=== PATIENT | female | born 1975 | race Caucasian/White ===

== ENCOUNTER → 2016-07-18 | Day surgery (SDC) | payer BC ==
[2016-07-17 13:23] VITALS: Ht 170.2 cm; Wt 120.5 kg
[~2016-07-18] VITALS: Ht 170.2 cm; Wt 120.5 kg
[~2016-07-18] MED LIST: BENZOIN SPRAY 118 ML BTL TOP ONE; BUPIVACAINE/EPINEPHRINE 0.5% MPF 1:200,000 30 ML VIAL ONE; CEFAZOLIN 2000 MG/60 ML D5W IV SCH; CHOL20009 PO; DEXAMETHASONE SOD INJ 4 MG/ML VIAL ONE; FENTANYL CITRATE INJ 50 MCG/1 ML 2 ML VIAL ONE; HYDR-5688 PO; HYDROCODONE/ACETAMOPHEN 5/325MG TAB PO PRN; HYDROmorphone INJ 0.5 MG/0.5 ML SYR ONE; HYDROmorphone INJ 1 MG/ML SYR IV PRN; KETOROLAC TROMETHAMINE 30 MG/ML VIAL IV. PRN; KETOROLAC TROMETHAMINE 30 MG/ML VIAL ONE; LACTATED RINGER'S 1000ML 1,000 ML IV PRN; LACTATED RINGER'S 1000ML 1,000 ML IV SCH; LEVO50TA6 PO; LIDOCAINE HCL 2% 2 ML VIAL (20MG/ML) ONE; METHYLENE BLUE 1% 1 ML VIAL ONE; MIDAZOLAM HCL 1 MG/ML 2ML VIAL ONE; MULT-506 PO; MoRPHine SULFATE 4 MG/ML 1 ML CARP\\VIAL IV PRN; ONDANSETRON INJ 2 MG/ML 2 ML VIAL IV PRN; ONDANSETRON INJ 2 MG/ML 2 ML VIAL ONE; OXYC7.5T65 PO; OXYMETAZOLINE HCL 0.05% NA SPR 15 ML BTL SCH; PROPOFOL IV EMULSION 10 MG/ML 20 ML VIAL IV ONE; ROCURONIUM BROMIDE 10 MG/ML 5 ML VIAL ONE; SODIUM CHLORIDE 0.9% 1000ML 1,000 ML IV SCH; SUCCINYLCHOLINE CHLORIDE 20 MG/ML 10 ML VIAL IV ONE; SULF800T23 PO
--- NOTE | 2016-07-18 08:19 | History & Physical Bridge Note ---
H&P Re-Evaluation Bridge Note: I have examined the patient, reviewed the History & Physical and in the interval since the performance of the History & Physical I have noted the following changes of clinical significance: No changes noted
--- NOTE | 2016-07-18 08:24 | Discharge Instructions-SurgCtr ---
Discharge Instructions Visit Reason for Visit: Pilonidal Cyst Discharge Discharge Diagnosis / Problem: pilonidal cyst Discharge Goals Goal(s): Decrease discomfort, Improve function Activity Recommendations Activity Limitations: as noted below Lifting Limitations: no more than 10 pounds Exercise/Sports Limitations: until after follow-up appointment May Resume Sexual Activity: after follow-up appointment Shower/Bathe: tomorrow Anesthesia . Post Anesthesia Instructions: If you have had General Anesthesia or IV Sedation: * Do not drive today. * Resume driving when surgeon permits. * Do not make important decisions or sign legal documents today. * Call surgeon for: 1. Temperature elevations greater than 101 degrees F. 2. Uncontrollable pain. 3. Excessive bleeding. 4. Persistent nausea and vomiting. 5. Medication intolerance (nausea, vomiting or rash). * For nausea and vomiting use only clear liquids such as: tea, soda, bouillon until nausea subsides, then gradually increase diet as tolerated. * If you have any concerns or questions, call your surgeon's office. If physician is unavailable and it is an emergency, call 911 or go to the nearest emergency room. . Instructions / Follow-Up Instructions / Follow-Up f/u with Dr. Brambila in 3 weeks. Diet Recommendations Home Diet: resume previous diet Pending Studies Studies pending at discharge: yes (pathology report) Medical Emergencies . Who to Call and When: Medical Emergencies: If at any time you feel your situation is an emergency, please call 911 immediately. . Non-Emergent Contact Non-Emergency issues call your: Primary Care Provider, Surgeon Call Non-Emergent contact if: temperature is above 101, your pain is not controlled, wound has increased drainage, wound has increased redness, wound has increased pain . . "Provider Documentation" section prepared by Emiliano Brambila.
--- NOTE | 2016-07-18 09:15 | [facility] Operative Report ---
Operative Report Operative Date Jul 18, 2016. Pre-Operative Diagnosis Pilonidal Cyst Post-Operative Diagnosis pilonidal cyst Procedure(s) Performed pilonidal cystectomy Surgeon Dr. Francisco Brambila Cold Type Composing Machine Operator Surgeon(s) Hector Zuniga PA-C Estimated Blood Loss 10CC Findings small sinus tract/cyst Specimens A. Pilonidal Cyst Tract Anesthesia GET Complication(s) None Disposition Recovery Room / PACU I attest to the content of the Intraoperative Record and any orders documented therein. Any exceptions are noted below.
[2016-07-18] MEDS: FENTANYL CITRATE INJ 50 MCG/1 ML 2 ML VIAL IV PRN ×4 (09:18→09:35)
[2016-07-18 10:39] VITALS: TEMP 36.6
--- NOTE | 2016-07-18 11:06 | Anesthesia Progress Nt - [facility] ---
Anesthesia Post Op Note Date & Time Jul 18, 2016 at 11:05 Vital Signs Pain Intensity: 6.0 Vital Signs Past 12 Hours Date Time Temp Pulse Resp B/P Pulse Ox O2 Delivery O2 Flow Rate FiO2 07/18/16 10:19 83 10 07/18/16 10:19 82 10 92 07/18/16 10:18 85 16 07/18/16 10:18 93 16 130/85 94 07/18/16 10:13 132/78 07/18/16 10:12 80 10 97 07/18/16 10:12 80 10 07/18/16 10:08 131/85 07/18/16 10:04 121/82 07/18/16 10:02 79 19 99 07/18/16 10:02 80 19 07/18/16 10:01 79 17 100 07/18/16 10:01 79 17 07/18/16 09:59 135/90 07/18/16 09:56 36.7 80 12 124/83 100 Room Air 07/18/16 09:54 124/83 07/18/16 09:51 78 21 100 07/18/16 09:51 79 20 100 07/18/16 09:49 125/80 07/18/16 09:46 80 12 100 07/18/16 09:46 80 12 07/18/16 09:45 83 15 07/18/16 09:45 83 15 100 07/18/16 09:44 126/76 07/18/16 09:40 90 22 100 07/18/16 09:40 83 20 100 07/18/16 09:39 137/90 07/18/16 09:34 94 30 139/93 100 07/18/16 09:34 93 17 100 07/18/16 09:29 97 20 135/77 100 07/18/16 09:29 95 20 07/18/16 09:23 116/84 07/18/16 09:20 104/77 07/18/16 09:19 102 18 99 07/18/16 09:19 109 16 99 07/18/16 09:14 110 17 100 07/18/16 09:14 110 17 07/18/16 09:14 37.1 111 20 134/78 97 Diffusion Mask 6 07/18/16 07:23 37.0 94 18 148/95 97 Room Air Notes Mental Status: alert / awake / arousable, participated in evaluation Pt Amnestic to Procedure: Yes Nausea / Vomiting: adequately controlled Pain: adequately controlled Airway Patency, RR, SpO2: stable & adequate BP & HR: stable & adequate Hydration State: stable & adequate Anesthetic Complications: no major complications apparent
[2016-07-18 11:25] VITALS: BP 158/89; PULSE 94; O2SAT 95
--- NOTE | 2016-07-29 11:46 | OPERATIVE REPORT ---
DATE OF OPERATION: 07/18/2016 PREOPERATIVE DIAGNOSIS: Symptomatic pilonidal cyst. POSTOPERATIVE DIAGNOSIS: Same. PROCEDURE: Pilonidal cystectomy. SURGEON: Dr. Brambila. ORIGINATION SPECIALIST: Alex Zuniga PA-C. ESTIMATED BLOOD LOSS: Approximately 10 mL. COMPLICATIONS: No immediate. OPERATIVE NOTE: After informed consent was obtained, the patient was brought to the operating suite, and placed in the supine position. She was intubated and rolled into a prone position slightly jackknifed. The lower back area was sterilely prepped and draped in the usual fashion. We began by using a blunt needle to inject the sinus tract that was visible. Once we did this, we then made an elliptical incision with a 10 blade scalpel around the visible sinus tract. We used electrocautery to carry down and make flaps under the skin. We continued to use electrocautery to take down all normal tissue around the area of the sinus tract. We continued to follow the cystic structures laterally, superiorly and inferiorly until we had all of the sac containing the visible blue dye removed. Once we had the entire cyst removed, which was clear down to the sacral bone itself, we then thoroughly irrigated the wound. Any small bleeding points were controlled using electrocautery. We then closed the defect in several layers using 0 Vicryl for the deep layers, 2-0 Vicryl for the mid layers and 3-0 Prolene in an interrupted vertical mattress fashion for the skin. We then placed a sterile dressing. The patient was awakened, rolled to supine position, extubated, and transferred to recovery in stable condition. I attest to the content of the Intraoperative Record and any orders documented therein. Any exceptio ns are noted below.
== END | disposition home or self-care (01) ==
LOC: X.SURG 07:17
PROVIDERS: ATTEND Surgery
DX: L05.91 Pilonidal cyst without abscess (principal); F41.9 Anxiety disorder, unspecified; E03.9 Hypothyroidism, unspecified; N20.0 Calculus of kidney; E55.9 Vitamin D deficiency, unspecified; E66.9 Obesity, unspecified

== ENCOUNTER → 2016-07-24 | Outpatient (CLI) | payer BC ==
[~2016-07-24] MED LIST changes: -BENZOIN SPRAY 118 ML BTL TOP ONE; -BUPIVACAINE/EPINEPHRINE 0.5% MPF 1:200,000 30 ML VIAL ONE; -CEFAZOLIN 2000 MG/60 ML D5W IV SCH; -DEXAMETHASONE SOD INJ 4 MG/ML VIAL ONE; -FENTANYL CITRATE INJ 50 MCG/1 ML 2 ML VIAL ONE; -HYDROCODONE/ACETAMOPHEN 5/325MG TAB PO PRN; -HYDROmorphone INJ 0.5 MG/0.5 ML SYR ONE; -HYDROmorphone INJ 1 MG/ML SYR IV PRN; -KETOROLAC TROMETHAMINE 30 MG/ML VIAL IV. PRN; -KETOROLAC TROMETHAMINE 30 MG/ML VIAL ONE; -LACTATED RINGER'S 1000ML 1,000 ML IV PRN; -LACTATED RINGER'S 1000ML 1,000 ML IV SCH; -LIDOCAINE HCL 2% 2 ML VIAL (20MG/ML) ONE; -METHYLENE BLUE 1% 1 ML VIAL ONE; -MIDAZOLAM HCL 1 MG/ML 2ML VIAL ONE; -MoRPHine SULFATE 4 MG/ML 1 ML CARP\\VIAL IV PRN; -ONDANSETRON INJ 2 MG/ML 2 ML VIAL IV PRN; -ONDANSETRON INJ 2 MG/ML 2 ML VIAL ONE; -OXYMETAZOLINE HCL 0.05% NA SPR 15 ML BTL SCH; -PROPOFOL IV EMULSION 10 MG/ML 20 ML VIAL IV ONE; -ROCURONIUM BROMIDE 10 MG/ML 5 ML VIAL ONE; -SODIUM CHLORIDE 0.9% 1000ML 1,000 ML IV SCH; -SUCCINYLCHOLINE CHLORIDE 20 MG/ML 10 ML VIAL IV ONE
[2016-07-24 11:10] LABS: CALCIUM 8.6 mg/dl (8.5-10.1)
[2016-07-24 11:27] LABS: THYROID STIMULATING HORMONE 1.38 uIu/ml (0.300-4.500)
== END | disposition home or self-care (01) ==
LOC: C.LABBC 08:57
PROVIDERS: ATTEND Internal Medicine Endocrinology, Diabetes & Metabolism
DX: E83.50 Unspecified disorder of calcium metabolism (principal); E87.6 Hypokalemia; E03.9 Hypothyroidism, unspecified; E55.9 Vitamin D deficiency, unspecified; R31.9 Hematuria, unspecified

== ENCOUNTER → 2016-10-27 | Outpatient (CLI) | payer BC, OTHER ==
--- NOTE | 2016-10-27 08:22 | DIAGNOSTIC IMAGING REPORT ---
LEFT FEMUR 2 VIEWS CLINICAL HISTORY: Left thigh/femur pain. History of surgery. COMPARISON: 05/29/2015 DISCUSSION: There are postsurgical changes of a total left hip arthroplasty. No acute fractures are visualized. There are no dislocations. There are no erosive or destructive changes. IMPRESSION: Postsurgical changes of a total left hip arthroplasty. No fractures or destructive lesions are visualized. Electronically signed by: Owen Núñez M.D. 10/27/2016 8:20 AM Dictated Date/Time: 10/27/2016 8:19 AM
== END | disposition home or self-care (01) ==
LOC: C.RDSM 08:00
PROVIDERS: ATTEND Physician Assistant
DX: M79.652 Pain in left thigh (principal)

== ENCOUNTER → 2016-11-24 | Outpatient (CLI) | payer BC ==
--- NOTE | 2016-11-24 08:56 | DIAGNOSTIC IMAGING REPORT ---
KUB CLINICAL HISTORY: Nephrolithiasis. COMPARISON STUDY: KUB November 05, 2015 and IVP April 21, 2016. FINDINGS: Incidental note is made of a left hip arthroplasty and suspected avascular necrosis of the right femoral head. Several small bilateral renal calculi measure up to 3 mm. A few right pelvic calcific densities are new since prior exam. These measure up to 4 mm. Left pelvic calcifications likely reflect phleboliths. IMPRESSION: 1. A few small right pelvic calcifications measuring up to 4 mm which favor right distal ureteral calculi. 2. Bilateral nephrolithiasis. Electronically signed by: Donald Reeder M.D. 11/24/2016 8:54 AM Dictated Date/Time: 11/24/2016 8:46 AM
== END | disposition home or self-care (01) ==
LOC: C.RAD 08:17
PROVIDERS: ATTEND Urology
DX: N20.2 Calculus of kidney with calculus of ureter (principal)

== ENCOUNTER → 2016-11-24 | Outpatient (CLI) | payer BC | END | disposition home or self-care (01) | LOC: C.LABSPEC 16:57 | PROVIDERS: ATTEND Nurse Practitioner Adult Health | DX: N20.1 Calculus of ureter (principal) ==

== ENCOUNTER → 2016-11-25 | Outpatient (CLI) | payer BC ==
--- NOTE | 2016-11-25 09:24 | DIAGNOSTIC IMAGING REPORT ---
TWO VIEW CHEST CLINICAL HISTORY: Preoperative examination. FINDINGS: PA and lateral chest radiographs are compared to study dated 09/26/2015. The cardiomediastinal silhouette is unremarkable. The lungs and pleural spaces are clear. There is no pneumothorax. The bony thorax appears intact. IMPRESSION: No active disease in the chest. Electronically signed by: Bijan Walker M.D. 11/25/2016 9:23 AM Dictated Date/Time: 11/25/2016 9:23 AM
[2016-11-25 09:44] LABS: BASO % 0.3 %; BASO ABS # 0.04 K/uL (0-0.2); COMPLETE YES; EOS % 2.4 %; HEMATOCRIT 39.6 % (37-47); IG% 0.3 %; LYMPH % 15.9 %; LYMPH ABS # 1.87 K/uL (1.2-3.4); MEAN CELL VOLUME 89.6 fL (80-100); MEAN CORPUSCULAR HEMOGLOBIN 29.4 pg (25-34); MEAN CORPUSCULAR HGB CONC 32.8 g/dl (32-36); MONO % 6.6 %; NEUT % 74.5 %; PLATELET COUNT 338 K/uL (130-400); RED BLOOD COUNT 4.42 M/uL (4.2-5.4); WHITE BLOOD COUNT 11.77 K/uL (4.8-10.8)
[2016-11-25 10:13] LABS: BLOOD UREA NITROGEN 13 mg/dl (7-18); BUN/CREATININE RATIO 17.5 (10-20); CARBON DIOXIDE 24 mmol/L (21-32); CHLORIDE 105 mmol/L (98-107); CREATININE 0.75 mg/dl (0.60-1.20); GLUCOSE 101 mg/dl (70-99); POTASSIUM 3.9 mmol/L (3.5-5.1); SODIUM 138 mmol/L (136-145)
[2016-11-25 10:30] LABS: CALCIUM 9.7 mg/dl (8.5-10.1)
== END | disposition home or self-care (01) ==
LOC: C.CPL 08:41
PROVIDERS: ATTEND Nurse Practitioner Adult Health
DX: N20.0 Calculus of kidney (principal); E03.9 Hypothyroidism, unspecified; E55.9 Vitamin D deficiency, unspecified; Z86.39 Personal history of other endocrine, nutritional and metabolic disease

== ENCOUNTER → 2016-11-27 | Outpatient (CLI) | payer BC ==
[~2016-11-27] MED LIST changes: -SULF800T23 PO
--- NOTE | 2016-11-27 08:21 | DIAGNOSTIC IMAGING REPORT ---
KUB HISTORY: N20.0 Nephrolithiasis COMPARISON: KUB 11/24/2016. FINDINGS: The bowel gas pattern is unremarkable. There are no dilated loops of small bowel to suggest an obstruction. No change in the 2 punctate stones within the lower pole of the right kidney. No left renal calculi. The suspected distal right ureteral calculi are not identified on this study. There is a left hip prosthesis. No pneumoperitoneum or pneumatosis. IMPRESSION: 1. Stable right-sided nephrolithiasis. 2. The distal right ureteral stones seen on the prior study are not clearly identified. Electronically signed by: Zeyad Cardenas M.D. 11/27/2016 8:19 AM Dictated Date/Time: 11/27/2016 8:18 AM
== END | disposition home or self-care (01) ==
LOC: C.RAD 07:35
PROVIDERS: ATTEND Nurse Practitioner Adult Health
DX: N20.0 Calculus of kidney (principal); N20.1 Calculus of ureter

== ENCOUNTER → 2016-12-15 | Outpatient (CLI) | payer BC ==
--- NOTE | 2016-12-15 09:15 | DIAGNOSTIC IMAGING REPORT ---
KUB HISTORY: N20.0 [id number] COMPARISON: KUB 11/27/2016. FINDINGS: The bowel gas pattern is unremarkable. There are no dilated loops of small bowel to suggest an obstruction. No change in the 2 punctate stones within the lower pole the right kidney. No left renal calculi. No ureteral calculi identified. Left hip prosthesis. No pneumoperitoneum or pneumatosis. IMPRESSION: Stable right-sided nephrolithiasis. No ureteral calculi identified. Electronically signed by: Zeyad Cardenas M.D. 12/15/2016 9:14 AM Dictated Date/Time: 12/15/2016 9:13 AM
== END | disposition home or self-care (01) ==
LOC: C.RAD 08:47
PROVIDERS: ATTEND Nurse Practitioner Adult Health
DX: N20.0 Calculus of kidney (principal)

== ENCOUNTER → 2017-01-05 | Outpatient (CLI) | payer BC ==
[~2017-01-05] MED LIST changes: -HYDR-5688 PO
[2017-01-05 12:10] LABS: BASO % 0.3 %; BASO ABS # 0.03 K/uL (0-0.2); COMPLETE YES; HEMATOCRIT 39.9 % (37-47); IG% 0.2 %; LYMPH % 19.1 %; LYMPH ABS # 1.72 K/uL (1.2-3.4); MEAN CELL VOLUME 90.7 fL (80-100); MEAN CORPUSCULAR HEMOGLOBIN 28.9 pg (25-34); MEAN CORPUSCULAR HGB CONC 31.8 g/dl (32-36); MEAN PLATELET VOLUME 9.1 fL (7.4-10.4); MONO % 6.2 %; NEUT % 72.2 %; PLATELET COUNT 292 K/uL (130-400)
[2017-01-05 12:17] LABS: URINE APPEARANCE CLOUDY (CLEAR); URINE BILIRUBIN NEG (NEG); URINE COLOR DK YELLOW; URINE EPITHELIAL CELL AUTO >30 /lpf (0-5); URINE NITRITE NEG (NEG); URINE SPECIFIC GRAVITY 1.024 (1.000-1.030); UROBILINOGEN NEG (NEG)
[2017-01-05 12:21] LABS: MANUAL MICROSCOPIC REQUIRED? NO; REVIEW REQ? NO
[2017-01-05 12:37] LABS: BLOOD UREA NITROGEN 11 mg/dl (7-18); BUN/CREATININE RATIO 16.3 (10-20); CALCIUM 8.3 mg/dl (8.5-10.1); CARBON DIOXIDE 27 mmol/L (21-32); CHLORIDE 104 mmol/L (98-107); CREATININE 0.66 mg/dl (0.60-1.20); GLUCOSE 91 mg/dl (70-99); POTASSIUM 3.8 mmol/L (3.5-5.1); SODIUM 140 mmol/L (136-145)
== END | disposition home or self-care (01) ==
LOC: C.LAB 10:16
PROVIDERS: ATTEND Nurse Practitioner Adult Health
DX: N20.0 Calculus of kidney (principal)

== ENCOUNTER → 2017-01-16 | Day surgery (SDC) | payer BC ==
[2016-11-25 10:27] VITALS: BMI 43.0
[2016-12-18 09:40] VITALS: Ht 170.2 cm; Wt 125.0 kg
--- NOTE | 2017-01-15 14:38 | DIAGNOSTIC IMAGING REPORT ---
KUB CLINICAL HISTORY: Nephrolithiasis. COMPARISON STUDY: KUB December 15, 2016. FINDINGS: 2 small calculi within lower pole of the right kidney measuring up to 3 mm are unchanged since exam of December 15, 2016. There is a 3 mm calculus within the upper pole of the left kidney. No ureteral calculi are identified. A punctate calcific density within left hemipelvis was likely present on prior exams. A left hip arthroplasty is noted. There is avascular necrosis of the right femoral head. IMPRESSION: 1. No change in several small calculi within lower pole of the right kidney. 3 mm left renal calculus. 2. No ureteral calculi. 3. Avascular necrosis of the right femoral head. Electronically signed by: Donald Reeder M.D. 01/15/2017 2:37 PM Dictated Date/Time: 01/15/2017 2:33 PM
[~2017-01-16] VITALS: Ht 170.2 cm; Wt 125.0 kg
[~2017-01-16] MED LIST changes: +ATROPINE SULFATE 0.1 MG/ML 5ML SYR IV PRN; +CIPROFLOXACIN 400MG / D5W IV SCH; +DEXAMETHASONE SOD INJ 4 MG/ML VIAL ONE; +EpHEDrine SULFATE INJ 50 MG/ML AMP IV PRN; +FENTANYL CITRATE INJ 50 MCG/1 ML 2 ML VIAL ONE; +LACTATED RINGER'S 1000ML 1,000 ML IV SCH; +LIDOCAINE HCL 2% 2 ML VIAL (20MG/ML) ONE; +MIDAZOLAM HCL 1 MG/ML 2ML VIAL ONE; +ONDANSETRON INJ 2 MG/ML 2 ML VIAL IV PRN; +ONDANSETRON INJ 2 MG/ML 2 ML VIAL ONE; +OXYCODONE/ACETAMINOPHEN 5-325 TAB PO PRN; +PROMETHAZINE HCL INJ 12.5 MG in SODIUM CHLORIDE 0.9% 50ML 50 ML IV PRN; +PROPOFOL IV EMULSION 10 MG/ML 20 ML VIAL IV ONE
--- NOTE | 2017-01-16 07:34 | Discharge Instructions ---
Discharge Instructions Date of Service Jan 16, 2017. Admission Reason for Admission: Stones Discharge Discharge Diagnosis / Problem: R renal stone s/p ESWL Discharge Goals Goal(s): Decrease discomfort, Improve disease control, Therapeutic intervention Activity Recommendations Activity Limitations: as noted below Lifting Limitations: no more than 25 pounds, gradually increase as tolerated ( over 3 days) Exercise/Sports Limitations: rest today, gradually increase as tolerated (over 3 days) May Resume Sexual Activity: when tolerated Shower/Bathe: no limitations Driving or Machine Use: resume 1 day after discharge . Instructions / Follow-Up Instructions / Follow-Up Strain urine as instructed Follow-up in office as scheduled with KUB Xray before visit Discharge Diet Recommended Diet: Regular Diet (good fluid intake) Procedures Procedures Performed: Right Extracorporeal Shock Wave Lithotripsy Pending Studies Studies pending at discharge: no Medical Emergencies . Who to Call and When: Medical Emergencies: If at any time you feel your situation is an emergency, please call 911 immediately. . Non-Emergent Contact Non-Emergency issues call your: Urologist Call Non-Emergent contact if: you have a fever, temperature is above 101, your pain is not controlled, your pain is worsening, your pain is unusual for you, your pain is concerning you, you have any medication questions . . "Provider Documentation" section prepared by Toy Hopper. . VTE Core Measure Inpt VTE Proph given/why not?: SCD's [place] Drug Monitoring Program Search Results: patient reviewed within database, see additional documentation (last Rx Oct 2016 by our office with previous stone passage)
--- NOTE | 2017-01-16 07:37 | [facility] Operative Report ---
Operative Report Operative Date Jan 16, 2017. Pre-Operative Diagnosis Right Kidney Stone Post-Operative Diagnosis Same Procedure(s) Performed Right Extracorporeal Shock Wave Lithotripsy Surgeon Dr Irene Hopper Wool Handler Surgeon(s) None Estimated Blood Loss 0ml Findings Good stone fragmentation on fluoro Specimens None Drains NA Anesthesia GALMA Complication(s) None Disposition Recovery Room / PACU Indications R renal stones Description of Procedure The patient was brought to the litho suite. He was correctly identified and the stone was visualized on his most recent x-rays. After the correct time out was performed the patient was positioned over the therapy head. An adequate level of anesthesia was administered. The extracorporeal shockwave lithotripsy treatment was then commenced. Please see the [place] Kidney Stone Management sheet for complete treatment summary. After completion of the procedure the patient was taken to the recovery room in stable condition. I attest to the content of the Intraoperative Record and any orders documented therein. Any exceptions are noted below. I attest to the content of the Intraoperative Record and any orders documented therein. Any exceptions are noted below.
[2017-01-16] MEDS: FENTANYL CITRATE INJ 50 MCG/1 ML 2 ML VIAL IV PRN ×2 (07:58→08:16)
[2017-01-16 08:41] VITALS: TEMP 36.8
--- NOTE | 2017-01-16 09:00 | Anesthesiology Progress Note ---
Anesthesia Post Op Note Date & Time Jan 16, 2017 at 09:00 Vital Signs Pain Intensity: 6 Vital Signs Past 12 Hours Date Time Temp Pulse Resp B/P (MAP) Pulse Ox O2 Delivery O2 Flow Rate FiO2 01/16/17 08:41 36.8 64 16 119/78 (92) 96 Room Air 01/16/17 08:28 36.7 63 16 137/78 98 01/16/17 08:22 137/76 01/16/17 08:19 72 19 01/16/17 08:19 73 19 100 01/16/17 08:16 126/68 01/16/17 08:14 69 26 01/16/17 08:14 68 26 100 01/16/17 08:12 125/70 01/16/17 08:09 68 17 01/16/17 08:09 70 17 100 01/16/17 08:06 115/81 01/16/17 08:04 71 14 123/55 100 01/16/17 08:04 69 14 01/16/17 08:02 65/39 01/16/17 07:59 59 17 100 01/16/17 07:59 63 17 01/16/17 07:58 54 15 01/16/17 07:58 55 15 100 01/16/17 07:56 122/70 01/16/17 07:53 59 17 100 01/16/17 07:53 59 17 01/16/17 07:51 121/71 01/16/17 07:48 54 17 100 01/16/17 07:48 54 17 01/16/17 07:46 122/77 01/16/17 07:44 36.4 77 16 125/80 100 Mask 01/16/17 06:33 36.7 86 20 133/82 (99) 96 Room Air Notes Mental Status: alert / awake / arousable, participated in evaluation Pt Amnestic to Procedure: Yes Nausea / Vomiting: adequately controlled Pain: adequately controlled Airway Patency, RR, SpO2: stable & adequate BP & HR: stable & adequate Hydration State: stable & adequate Anesthetic Complications: no major complications apparent
[2017-01-16 09:14] VITALS: BP 107/73; PULSE 64; O2SAT 97
== END | disposition home or self-care (01) ==
LOC: X.SURG 06:11
PROVIDERS: ATTEND Urology
DX: N20.0 Calculus of kidney (principal); J45.909 Unspecified asthma, uncomplicated; F41.9 Anxiety disorder, unspecified; E03.9 Hypothyroidism, unspecified; E55.9 Vitamin D deficiency, unspecified; E87.6 Hypokalemia; Z79.899 Other long term (current) drug therapy

== ENCOUNTER → 2017-01-26 | Outpatient (CLI) | payer BC ==
[~2017-01-26] MED LIST changes: -ATROPINE SULFATE 0.1 MG/ML 5ML SYR IV PRN; -CIPROFLOXACIN 400MG / D5W IV SCH; -DEXAMETHASONE SOD INJ 4 MG/ML VIAL ONE; -EpHEDrine SULFATE INJ 50 MG/ML AMP IV PRN; -FENTANYL CITRATE INJ 50 MCG/1 ML 2 ML VIAL ONE; -LACTATED RINGER'S 1000ML 1,000 ML IV SCH; -LIDOCAINE HCL 2% 2 ML VIAL (20MG/ML) ONE; -MIDAZOLAM HCL 1 MG/ML 2ML VIAL ONE; -ONDANSETRON INJ 2 MG/ML 2 ML VIAL IV PRN; -ONDANSETRON INJ 2 MG/ML 2 ML VIAL ONE; -OXYCODONE/ACETAMINOPHEN 5-325 TAB PO PRN; -PROMETHAZINE HCL INJ 12.5 MG in SODIUM CHLORIDE 0.9% 50ML 50 ML IV PRN; -PROPOFOL IV EMULSION 10 MG/ML 20 ML VIAL IV ONE
--- NOTE | 2017-01-26 09:57 | DIAGNOSTIC IMAGING REPORT ---
KUB HISTORY: 41 years-old Female N20.0 nephrolithiasis. Patient had lithotripsy 10 days prior. COMPARISON: KUB radiograph 01/15/2017 TECHNIQUE: Abdominal radiograph FINDINGS: No change in 3 mm left renal calculus progression over the superior pole. Calcifications project over the superior pole right kidney which may reflect additional calculi. No calculi are seen to correlate with the finding seen within the region of the lower pole right kidney on comparison study. No calculi are seen along the course of the ureters. Left hip arthroplasty noted. There is AVN of the right femoral head without evidence of articular collapse. IMPRESSION: 1. Previously noted calculi projecting over the inferior pole right kidney is no longer seen, suggesting interval passage. 2. Bilateral nephrolithiasis. 3. No calculi seen along the course of either ureter. The above report was generated using voice recognition software. It may contain grammatical, syntax or spelling errors. Electronically signed by: Dieudonne Macdonald M.D. 01/26/2017 9:56 AM Dictated Date/Time: 01/26/2017 9:53 AM
== END | disposition home or self-care (01) ==
LOC: C.RAD 09:19
PROVIDERS: ATTEND Nurse Practitioner Adult Health
DX: N20.0 Calculus of kidney (principal)

== ENCOUNTER → 2017-01-26 | Outpatient (CLI) | payer BC | END | disposition home or self-care (01) | LOC: C.LABSPEC 17:05 | PROVIDERS: ATTEND Nurse Practitioner Adult Health | DX: N20.0 Calculus of kidney (principal) ==

== ENCOUNTER → 2017-02-02 | Outpatient (CLI) | payer BC ==
--- NOTE | 2017-02-02 08:31 | DIAGNOSTIC IMAGING REPORT ---
KUB CLINICAL HISTORY: 41 years-old Female presenting with NEPHROLITHIASIS. TECHNIQUE: Single supine view of the abdomen was obtained. COMPARISON: 01/26/2017. FINDINGS: Previously noted 3 mm calculus at the upper pole the left kidney is again noted. No change in position. Stool partially obscures visualization of the right kidney collecting system. Allowing for this, no convincing evidence of calcification along the right likely system or ureters. No calcifications project over the bladder Mild stool burden. Nonobstructive bowel gas pattern. Osseous structures demonstrate total left hip arthroplasty. IMPRESSION: 1. Stable appearance of the 3 mm calculus at the left upper pole. No calculi along the course of either ureter. Electronically signed by: Abebe Holland M.D. 02/02/2017 8:30 AM Dictated Date/Time: 02/02/2017 8:25 AM
== END | disposition home or self-care (01) ==
LOC: C.RAD 08:05
PROVIDERS: ATTEND Nurse Practitioner Adult Health
DX: N20.0 Calculus of kidney (principal)

== ENCOUNTER → 2017-07-10 | Outpatient (CLI) | payer BC ==
--- NOTE | 2017-07-10 10:46 | DIAGNOSTIC IMAGING REPORT ---
KUB CLINICAL HISTORY: 42 years-old Female presenting with 592.0, N20.0. TECHNIQUE: Single supine view of the abdomen was obtained. COMPARISON: 02/02/2017. FINDINGS: Nonobstructive bowel gas pattern. No gross pneumoperitoneum. Allowing for bowel gas and stool, previously noted punctate calcification at the upper pole of the left kidney unchanged. No new renal calculus. No radiographic apparent ureteral calculus. Total left hip arthroplasty. IMPRESSION: 1. Unchanged left renal calculus. Electronically signed by: Abebe Holland M.D. 07/10/2017 10:44 AM Dictated Date/Time: 07/10/2017 10:43 AM
== END | disposition home or self-care (01) ==
LOC: C.RAD 10:03
PROVIDERS: ATTEND Urology
DX: N20.0 Calculus of kidney (principal)

== ENCOUNTER → 2018-01-26 | Outpatient (CLI) | payer BC ==
[2018-01-26 13:09] LABS: ALBUMIN 3.4 gm/dl (3.4-5.0); CALCIUM 7.9 mg/dl (8.5-10.1)
== END | disposition home or self-care (01) ==
LOC: C.LABBC 10:05
PROVIDERS: ATTEND Internal Medicine Endocrinology, Diabetes & Metabolism
DX: E03.9 Hypothyroidism, unspecified (principal); E06.3 Autoimmune thyroiditis; E83.50 Unspecified disorder of calcium metabolism; E55.9 Vitamin D deficiency, unspecified; N20.0 Calculus of kidney; Z86.39 Personal history of other endocrine, nutritional and metabolic disease

== ENCOUNTER → 2018-01-26 | Outpatient (CLI) | payer BC ==
--- NOTE | 2018-01-26 15:18 | DIAGNOSTIC IMAGING REPORT ---
L HEEL MIN 2 VIEWS CLINICAL HISTORY: LEFT HEEL PAIN COMPARISON: Left foot radiographs May 02, 2014 and MRI of the left foot June 20, 2014. FINDINGS: Subtalar joint is intact. No fracture or suspicious lesion is identified within the left calcaneus. There is mild plantar calcaneal spurring. IMPRESSION: 1. No calcaneal fracture or suspicious osseous lesion. 2. Mild plantar calcaneal spurring. Electronically signed by: Donald Reeder M.D. 01/26/2018 3:17 PM Dictated Date/Time: 01/26/2018 3:16 PM
== END | disposition home or self-care (01) ==
LOC: C.RDSM 14:27
PROVIDERS: ATTEND Physician Assistant
DX: M79.672 Pain in left foot (principal); Z88.1 Allergy status to other antibiotic agents; Z88.6 Allergy status to analgesic agent

== ENCOUNTER 2024-09-19 06:48 | Inpatient (IN) ==
--- NOTE | 2024-09-01 16:26 | History & Physical Report ---
Date of Service September 01, 2024 Assessment & Plan (1) Gestational hypertension: (2) Insulin controlled gestational diabetes mellitus (GDM) during : (3) Elderly multigravida: (4) resulting from in-vitro fertilization: Plan Patient presents today for primary elective c/s at 37 weeks secondary to GHTN GHTN has been well controlled with normal labs. The risks of surgery were discussed with the patient including the risks of anesthesia, bleeding requiring transfusion, infection, poor wound healing, urinary retention, damage to surrounding structures including bowels, bladder, vessels, nerves and ureters that may require further surgery, hospitalization or intervention. The other risks of any surgery were discussed including heart attack, blood clots, stroke or . Discussed risk of injury. Consent reviewed and signed. Questions answered. History of Present Illness Chief Complaint: presents for elective c/s. Primary Care Provider: Nima Amin MD Patient is a 49yowf who presents today at 37+ weeks for primary elective c/s in setting of GHTN. Patient electing c/s because os history of hip replacement secondary to avascular necrosis. Multiple issues with this as noted below. Growth us have been reassuring and appropriate. testing reassuring. Developed GHTN around 25 weeks and labs and blood pressures have been stable since. Sugars controlled on insulin. and Delivery Plans Primary elective due to maternal hip replacement and avascular necrosis Schedule at 28wk visit. C/S SCHEDULED FOR 09/19/[address] ROJAS AND DR. KHAN ASSIST IVF/ICSI--THIS IS PRIVATE FOR SPOUSE AND PATIENT ONLY TO KNOW *Donor egg used*--33yo * Echo-[facility] [place]/14/24: WNL - JBS *Growth US Q4wks @28wks *Weekly NSTs @36wks *Weekly JASWINDER's @36wks(ICSI done) AMA>40@del *Anatomy Scan @ 20wks * Echo 22-24wks - 06/14 *Growth scan @32wks *Weekly NST's @36 wks *Twice weekly NST @38wks *Weekly JASWINDER's @38wks *Deliver by 40 wks Gest HTN @ 25wk *Weekly BP chk's with Doc *Weekly CBC, LFTs *Growth US Q4wks *If IUGR: JASWINDER w/UAD's weekly *Deliver 37-38wks *(If Gestational HTN<28wks bring to [facility]) *Twice weekly NST's @Dx Obesity (BMI between 35-39 @ beginning of )--38.3 *Growth US @ 32 wks *Weekly NSTs @ 36wks Hypothyroid *Check TFTs Q4wks - managed by Sergio MOE w/16wk glucola *Begin monthly Growth US's @24wks UDS on admission Allergies Allergy/AdvReac Type Severity Reaction Status Date / Time clindamycin Allergy Unknown RASH Verified 09/01/24 10:25 amoxicillin AdvReac Unknown NAUSEA Verified 09/01/24 10:25 clavulanic acid AdvReac Unknown NAUSEA Verified 09/01/24 10:25 NSAIDS (Non-Steroidal AdvReac Unknown "NOT Verified 09/01/24 10:25 Anti-Inflamma SUPPOSE TO TAKE DUE TO KIDNEY STONES" Home Medications Medication Instructions Recorded Confirmed Type aspirin [Baby Aspirin] PO 03/14/24 09/01/24 History [id number] PO 03/14/24 09/01/24 History [ Plus] cholecalciferol (vitamin D3) 25 4,000 unit PO DAILY 90 days #360 03/29/24 09/01/24 Rx mcg (1,000 unit) capsule caps acetone (urine) test (Ketone Urine #50 ea 05/19/24 09/01/24 Rx Test strips) blood sugar diagnostic (OneTouch #150 ea 05/19/24 09/01/24 Rx Verio test strips) blood-glucose meter (OneTouch #1 ea 05/19/24 09/01/24 Rx Verio Reflect Meter) lancets 33 gauge (OneTouch Delica #150 ea 05/19/24 09/01/24 Rx Plus Lancet) insulin NPH isoph U-100 human 100 10 unit (0.1 mL) subcut QPM #15 mL 05/27/24 09/01/24 Rx unit/mL (3 mL) subcutaneous pen (Novolin N FlexPen) pen needle, diabetic 32 gauge x #100 ea 05/27/24 09/01/24 Rx 5/32" (BD Ultra-Fine Jenelle Pen Needle) levothyroxine 175 mcg tablet 175 mcg PO DAILY #30 tabs 08/04/24 09/01/24 Rx Patient History Medical History AVN (avascular necrosis of bone) right hip Chicken pox Parathyroid tumor Avascular necrosis of bone of hip Recurrent loss Nephrolithiasis Class 3 obesity History of hyperparathyroidism Hypoparathyroidism after procedure Vitamin D deficiency Hypothyroidism Left ureteral stone Asthma asa child- no issues as an adult Surgical History History of left hip replacement For AVN History of D&C Hx of breast lump removal benign Hx of cervical biopsy Hx of inguinal hernia repair x 2, left Hx of laparoscopy Hx of lithotripsy X 5 Hx of oral surgery History of excision of pilonidal cyst History of parathyroidectomy PARATHYROID ADENOMA 2010-HAS HAD 3 SURGERIES ON PARATHYROIDS Family History Mother Cervical cancer Osteoporosis Grandfather (Paternal) Hypertension Father Healthy adult Grandmother (Paternal) Pancreatic cancer Aunt Breast cancer Other No family history of adverse response to anesthesia Denies family history of Ovarian cancer Colonic polyp Social History Smoking Status: Never smoker Second Hand Exposure: No; Do You Dip or Chew Tobacco: No; Hx Alcohol Use: No Hx Substance Use: No Preferred Language: Serbian Communication Ability: Effective Director Of Healthcare Systems Required: No Beliefs That Will Affect Care: None marital status: marital status details: Tony Perez [phone]) [phone] Current Living Situation: Spouse Current Living Situation Comment: Lives with and 1 dog current occupational status: employed current occupation: Physical Therapist Feels Safe at Home: Yes Assistive Devices: Glasses OB History Past Pregnancies Del. Date GA wks Lbr Lgth wt Sex Type del Anes Place Del Prov ? Comment 02/03/22 6 Aborted-Spontaneous 08/06/22 6 Aborted-Spontaneous 12/04/22 6 Ectopic Methotrexat e 10/05/23 6 Aborted-Spontaneous Cytotec [employer] History noncontributory Physical Exam Constitutional: WD/WN, vitals as above Gastrointestinal (Abdomen): obese , soft, gravid Psychiatric: A+Ox3, euthymic affect Coding Level of Care Code None Diagnoses Gestational hypertension O13.9 Insulin controlled gestational diabetes mellitus (GDM) during O24.414 Elderly multigravida O09.529 resulting from in-vitro fertilization O09.819
--- NOTE | 2024-09-05 11:08 | Anesthesiology Consultation ---
Date of Service September 05, 2024 Assessment & Plan (1) Encounter for pre-operative examination: Infectious disease screening: Per assessment on 09/05/24- No known recent infectious disease contacts or current infectious disease symptoms. Chart Review Chart Review: user experience manager initiated History Surgery Operation Date: 09/19/24 08:45 Proposed Procedures p Section (Delivery of Baby Through Abdominal Incision) - Jennifer Rod MD, FACOG Height/Weight Height: 5 ft 6 in Weight: 123.831 kg Allergies Allergy/AdvReac Type Severity Reaction Status Date / Time clindamycin Allergy Mild Rash Verified 09/05/24 11:07 amoxicillin AdvReac Mild Nausea Verified 09/05/24 11:07 clavulanic acid AdvReac Mild Nausea Verified 09/05/24 11:07 NSAIDS (Non-Steroidal AdvReac Mild Advised to Verified 09/05/24 11:07 Anti-Inflamma avoid due to kidney stone history Medications Home Medications Medication Instructions Recorded Confirmed Last Taken cholecalciferol (vitamin D3) 25 4,000 unit PO DAILY 90 days #360 03/29/24 09/05/24 Unknown mcg (1,000 unit) capsule caps acetone (urine) test (Ketone Urine #50 ea 05/19/24 09/01/24 Unknown Test strips) blood sugar diagnostic (OneTouch #150 ea 05/19/24 09/01/24 Unknown Verio test strips) blood-glucose meter (OneTouch #1 ea 05/19/24 09/01/24 Unknown Verio Reflect Meter) lancets 33 gauge (OneTouch Delica #150 ea 05/19/24 09/01/24 Unknown Plus Lancet) insulin NPH isoph U-100 human 100 10 unit (0.1 mL) subcut QPM #15 mL 05/27/24 09/05/24 Unknown unit/mL (3 mL) subcutaneous pen (Novolin N FlexPen) pen needle, diabetic 32 gauge x #100 ea 05/27/24 09/01/24 Unknown 32" (BD Ultra-Fine Jenelle Pen Needle) aspirin 81 mg capsule 81 mg PO DAILY 09/05/24 09/05/24 Unknown ferrous sulfate 325 mg (65 mg 325 mg PO Q OTHER DAY 09/05/24 09/05/24 Unknown iron) tablet (Iron (ferrous sulfate)) levothyroxine 175 mcg tablet 175 mcg PO QAM 09/05/24 09/05/24 Unknown vit with calcium-iron 1 tab PO DAILY 09/05/24 09/05/24 Unknown fum-folic acid 60 mg-0.8 mg tablet Past Medical History Medical History AVN (avascular necrosis of bone) Right hip Left hip - surgery 2012 Class 3 obesity Gestational diabetes Follows with endo/Dr. 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 Past Family History Family History Mother Cervical cancer Osteoporosis Grandfather (Paternal) Hypertension Father Healthy adult Grandmother (Paternal) Pancreatic cancer Aunt Breast cancer Other No family history of adverse response to anesthesia Denies family history of Ovarian cancer Colonic polyp Past Surgical History Surgical History History of D&C History of excision of pilonidal cyst History of left hip replacement (2012) For AVN History of parathyroidectomy (2014) Multiple parathyoid surgeries x3 between [id number] (r/t Parathyroid adenoma) Hx of breast lump removal benign Hx of cervical biopsy Hx of inguinal hernia repair Left x2 Hx of laparoscopy Hx of lithotripsy Multiple, most recent 07/2023 Hx of oral surgery S/P cystoscopy with ureteral stent placement Social History Smoking Status: Never smoker Do You Dip or Chew Tobacco: No Hx Alcohol Use: No Alcohol type: wine alcohol intake frequency: a few times a week Hx Substance Use: No substance use type: does not use Lab Results Anesthesia Preop Results Results Anesthesia Widget: WBC 8.43 K/ul (4.8-10.8) 09/01/24 Hgb 10.7 g/dl (12.0-16.0) L 09/01/24 Hct 34.3 % (37.0-47.0) L 09/01/24 Plt 262 K/uL (130-400) 09/01/24 Na 136 mmol/L (136-145) 09/01/24 K 3.8 mmol/L (3.5-5.1) 09/01/24 Cl 104 mmol/L (98-107) 09/01/24 CO2 27 mmol/L (21-32) 09/01/24 BUN 10 mg/dl (6-23) 09/01/24 Creat 0.64 mg/dl (0.6-1.2) 09/01/24 Glucose Level 89 mg/dl (70-99(Fasting)) 09/01/24 TSH 0.120 uIu/ml (0.300-4.500) L 08/25/24 Free T4 0.71 ng/dl (0.61-1.60) 08/25/24 Urine Color Yellow 07/25/24 Urine Appearance Cloudy (Clear) A 07/25/24 Urine pH 5.5 (4.5-7.5) 07/25/24 Urine Specific Usk 1.015 (1.000-1.030) 07/25/24 Urine Protein Negative (Negative) 07/25/24 Urine Glucose (UA) Negative (Negative) 07/25/24 Urine Ketones Negative (Negative) 07/25/24 Urine Blood Negative (Negative) 07/25/24 Urine Nitrite Negative (Negative) 07/25/24 Urine Bilirubin Negative (Negative) 07/25/24 Urine Urobilinogen Negative (Negative) 07/25/24 Urine Leukocyte Esterase Negative (Negative) 07/25/24 Urine WBC (Auto) 6-10 /hpf (0-5) H 07/25/24 Urine RBC (Auto) 3-5 /hpf (0-2) H 07/25/24 Urine Hyaline Casts (Auto) 0-2 /lpf (0-2) 07/25/24 Urine Epithelial Cells (Auto) 11-20 /hpf (0-2) H 07/25/24 Urine Bacteria (Auto) 1+ (None Seen) H 07/25/24 Testing Laboratory Results Urine culture (07/25/24): probable skin santiago
[~2024-09-19 06:48] MED LIST changes: -CHOL20009 PO; +DEXAMETHASONE SOD INJ 4 MG/ML VIAL ONE; +KETOROLAC 30 MG/ML VIAL ONE; -LEVO50TA6 PO; -MULT-506 PO; +MoRPHine SULFATE PF 1 MG/ML 10 ML AMP/VIAL ONE; +ONDANSETRON INJ 2 MG/ML 2 ML VIAL ONE; -OXYC7.5T65 PO; +OXYTOCIN 10 UNITS/ML VIAL ONE; +PHENYLEPHRINE HCL 25 MG/250 ML NSS IV ONE; +fentaNYL citrate PF 100 MCG/2 ML VIAL ONE
[2024-09-19] MEDS: LACTATED RINGER'S 1,000 ML IV SCH ×2 (07:35→08:35)
[2024-09-19] MEDS: ACETAMINOPHEN 500 MG TAB ONE (08:31)
[2024-09-19] MEDS: CITRIC ACID/SODIUM CITRATE 15 ML UDC ONE (08:44)
[2024-09-19 09:28] LABS: Hematocrit (blood only) 35.3 % (37.0-47.0); Hemoglobin 11.6 g/dl (12.0-16.0); Mean Corpuscular Hemoglobin 28.9 pg (25.0-34.0); Mean Corpuscular Hgb Conc 32.9 g/dL (32.0-36.0); Mean Platelet Volume 9.9 fL (9.4-12.4); Platelet Count 265 K/uL (130-400); RDW Coefficient of Variation 15.6 % (11.5-14.5); RDW Standard Deviation 50.3 fL (36.4-46.3); Red Blood Count 4.01 M/uL (4.20-5.40)
[2024-09-19] MEDS: ceFAZolin 3000MG 3,000 MG/72.5 ML BAG IV SCH (09:39)
[2024-09-19] MEDS ORDERED: NALOXONE HCL 1 MG in SODIUM CHLORIDE 0.9% 1,000 ML IV PRN (09:55)
[2024-09-19] MEDS ORDERED: PROMETHAZINE 6.25 MG/50.25 ML BAG IV PRN (09:55)
[2024-09-19] MEDS ORDERED: ONDANSETRON INJ 2 MG/ML 2 ML VIAL IV PRN ×2 (09:55→11:10)
[2024-09-19] MEDS ORDERED: diphenhydrAMINE 50 MG/ML VIAL IV PRN (09:55)
[2024-09-19] MEDS ORDERED: NALOXONE HCL 0.08 MG in SYRINGE 1.8 ML IV PRN (09:55)
[2024-09-19] MEDS ORDERED: ePHEDrine sulfate 50 MG/ML AMP IV PRN (09:55)
[2024-09-19] MEDS ORDERED: NALBUPHINE HCL INJ 10 MG/ML AMP IV PRN (09:55)
[2024-09-19] MEDS ORDERED: NALOXONE HCL 0.4 MG/1 ML VIAL/CARP IV PRN (09:55)
[2024-09-19] MEDS ORDERED: NO NARCOTICS OR SEDATIVES SCH (10:00)
[2024-09-19] MEDS ORDERED: DC INTRASPINAL MORPHINE SCH (10:00)
[2024-09-19] MEDS ORDERED: OXYTOCIN 20 UNITS/1002ML LR IV ONE (10:13)
--- NOTE | 2024-09-19 10:44 | Operative Report ---
PG Post Operative Report Pre & Post Diagnosis Operation Date: 09/19/24 08:45 Pre-Op Diagnosis: at 37 Weeks; Desires Elective Primay Caesarean Section; Gestational Hypertension; Gestational Diabetes; IVF Post-Op Diagnosis: Same;Delivery of a live male child at 1003 I identified the patient and participated in the time-out.: Yes Procedure Operation Date: 09/19/24 08:45 Actual Procedures p Primary low transverse Section - Jennifer Rod MD, FACOG Surgeon Jennifer Rod MD, FACOG Bolter Helper Travis Khan, MS2 Estimated Blood Loss 754 (QBL) Findings Consistent with Post-Op Diagnosis viable male . apgars 7/8 normal appearing uterus , tubes, ovaries Fluids ivf--1000cc uop--50cc, clear Specimens none Drains greer Anesthesia Type Spinal Complications none Disposition Accompanied Patient To Recovery: Yes Disposition: L&D Indications Patient is a 49yowf with ifv , insulin requiring gdm, ghtn. Presents for primary c/s at 37+ weeks. Description of Procedure The patient was taken to the operating room where she was identified verbally and by bracelet. She was seated on the operating table where a spinal anesthetic was placed by anesthesia. She was then placed in the supine position with a leftward tilt. A Greer catheter was placed sterilely. the patient was prepped and draped in a normal standard fashion. the anesthetic was tested and found to be adequate. A time-out was held, identifying correct patient, procedure, positioning and preoperative antibiotics. There were no concerns. A Pfannenstiel skin incision was made with a knife and taken down to the underlying layer of fascia with the knife and Bovie electrocautery. Bleeding was attended to with the Bovie. The fascia was incised in the midline with the knife and taken out laterally with scissors. The superior edge of the fascial incision was grasped, elevated and the underlying layer of rectus muscle was taken off bluntly and with scissors. In a similar fashion, the inferior edge of the fascial incision was grasped, elevated and the underlying layer of rectus muscle was taken off bluntly and with scissors. The muscles were bluntly in the midline. The peritoneum was entered bluntly. The incision was then stretched. The bladder blade was placed. The vesicouterine peritoneum was identified, entered with scissors and taken out laterally with scissors. The bladder flap was created digitally A hysterotomy incision was scored with a knife and the incision was stretched superiorly and inferiorly with the tuft machine operator's fingers. The operators hand was placed into the incision and the head was delivered atraumatically with fundal pressure. No nuchal cord, body cord noted. The nose and mouth were bulb suctioned. the rest of the infant was then delivered without difficulty. The nose and mouth were again bulb suctioned. The cord was clamped and cut and the was then handed off to the awaiting shellfish manager for drying and attention. Cord blood and segment were obtained. The placenta was Manually extracted. The uterus was exteriorized and cleared of all clot and debris with moistened laparotomy sponges. The hysterotomy incision was repaired in two layers, the first in a running locked layer, the second in an imbricating layer. Hemostasis was noted to be good. Posterior cul-de-sac was irrigated and cleared of all clot and debris. The hysterotomy incision was again inspected and a suture needed for hemostasis. the uterus was reinteriorized. Hysterotomy incision was again inspected and found to be hemostatic. The fascia was then reapproximated with 0 Vicryl starting at the edges and meeting in the midline. The subcuticular tissues were copiously irrigated and bleeding was attended to with cautery. 2-0 plain gut suture was used to reapproximate the sub-Q tissues. The skin was then closed with 4-0 Vicryl in a subcuticular fashion. All sponge, lap and needle counts were correct x 2. The patient tolerated the procedure well and was sent to the recovery room in stable condition. I attest to the content of the Intraoperative Record and any orders documented therein. Any exceptions are noted below. OB Procedure Charges 27429
[2024-09-19] MEDS ORDERED: HYDROCORTISONE ACETATE 25 MG SUPP PR PRN (11:10)
[2024-09-19] MEDS ORDERED: CALCIUM CARBONATE 500 MG CHEWABLE TAB PO PRN (11:10)
[2024-09-19] MEDS ORDERED: SODIUM CHLORIDE 0.9% 1,000 ML IV SCH (11:10)
[2024-09-19] MEDS ORDERED: BENZOCAINE 20% SPRY 85 APPLN/85 GM CAN EXT PRN (11:10)
[2024-09-19] MEDS ORDERED: LACTATED RINGER'S 1,000 ML IV SCH (11:10)
--- NOTE | 2024-09-19 11:44 | Anesthesiology Progress Note ---
Date of Service September 19, 2024 Anesthesia Post Procedure Vital Signs Vital Signs: Temp Pulse Resp BP Pulse Ox 09/19/24 11:42 81 96 09/19/24 11:39 86 123/73 09/19/24 11:37 82 96 09/19/24 11:32 79 97 09/19/24 11:29 77 125/71 09/19/24 11:28 20 09/19/24 11:27 84 96 09/19/24 11:22 85 96 09/19/24 11:21 89 125/66 09/19/24 11:18 20 09/19/24 11:17 78 98 09/19/24 11:12 78 98 09/19/24 11:09 86 147/68 H 09/19/24 11:08 20 09/19/24 11:07 90 99 09/19/24 11:02 84 96 09/19/24 11:00 79 116/57 L 09/19/24 10:58 18 09/19/24 10:57 66 98 09/19/24 10:52 98 H 98 09/19/24 10:50 93 H 91 09/19/24 10:48 20 09/19/24 10:48 87 119/72 09/19/24 10:47 85 99 09/19/24 10:44 79 91 09/19/24 10:42 83 99 09/19/24 10:38 98.1 F 20 09/19/24 10:38 80 114/57 L 09/19/24 10:37 86 96 09/19/24 08:04 98.6 F 20 09/19/24 07:00 115 H 144/84 H Pain Intensity Lower Abdomen: Pain Intensity: 4 Transfer of Care Handoff Completed per policy Notes Mental Status: alert / awake / arousable and participated in evaluation Patient Amnestic to Procedure: No Nausea / Vomiting: adequately controlled Pain: adequately controlled Airway Patency, RR, SpO2: stable & adequate BP & HR: stable & adequate Hydration State: stable & adequate Neuraxial Anesthesia: was administered and sensory block is resolving Anesthetic Complications: no major complications apparent and Pt Satisfied with anesthetic care
[2024-09-19] MEDS: CITRIC ACID/SODIUM CITRATE 15 ML UDC PO SCH (12:08)
[2024-09-19] MEDS: DIPHTHER/TETAN/PERTUS Vaccine (Tdap, Adol/Adult) 0.5mL IM ONE (12:08)
[2024-09-19] MEDS: MoRPHine SULFATE PF 1 MG/ML 10 ML AMP/VIAL INT SPINAL ONE (12:09)
[2024-09-19] MEDS: HYDROmorphone INJ 0.5 MG/0.5 ML SYR IV PRN (12:16)
[2024-09-19] MEDS: SIMETHICONE 80 MG CHEW PO SCH (13:35)
[2024-09-19] MEDS: HYDROmorphone INJ 0.5 MG/0.5 ML SYR IV STA (13:37)
[2024-09-19] MEDS: KETOROLAC 30 MG/ML VIAL IV SCH (16:03)
[2024-09-19] MEDS: OXYTOCIN 20 UNITS/LR 1,002 ML IV SCH (19:12)
[2024-09-19] MEDS: DOCUSATE SODIUM 100 MG CAP PO SCH (20:24)
[2024-09-19] MEDS: ACETAMINOPHEN 325 MG TAB PO SCH (22:34)
[2024-09-20] MEDS ORDERED: diphenhydrAMINE 50 MG/ML VIAL IV PRN (03:55)
[2024-09-20] MEDS ORDERED: HYDROmorphone INJ 0.5 MG/0.5 ML SYR IV PRN (03:55)
[2024-09-20] MEDS ORDERED: diphenhydrAMINE Capsule 25 MG CAP PO PRN (03:55)
[2024-09-20] MEDS ORDERED: PROMETHAZINE 12.5 MG/50.5 ML BAG IV PRN (03:55)
[2024-09-20] MEDS ORDERED: ACETAMINOPHEN 500 MG TAB PO SCH (06:00)
[2024-09-20 06:24] LABS: Basophils # (auto) 0.04 K/uL (0.00-0.20); Basophils % (auto) 0.3 %; Eosinophils # (auto) 0.41 K/uL (0.00-0.50); Eosinophils % (auto) 3.3 %; Hematocrit (blood only) 27.9 % (37.0-47.0); Hemoglobin 9.1 g/dl (12.0-16.0); Immature Granulocytes # (auto) 0.09 K/uL (0.01-0.20); Immature Granulocytes % (auto) 0.7 %; Lymphocytes # (auto) 1.65 K/uL (1.20-3.40); Lymphocytes % (auto) 13.2 %; Mean Corpuscular Hemoglobin 29.1 pg (25.0-34.0); Mean Corpuscular Hgb Conc 32.6 g/dL (32.0-36.0); Mean Corpuscular Volume 89.1 fL (80.0-100.0); Mean Platelet Volume 9.7 fL (9.4-12.4); Monocytes # (auto) 1.03 K/uL (0.11-0.59); Monocytes % (auto) 8.3 %; Neutrophils # (auto) 9.26 K/uL (1.40-6.50); Neutrophils % (auto) 74.2 %; Platelet Count 238 K/uL (130-400); RDW Coefficient of Variation 15.7 % (11.5-14.5); RDW Standard Deviation 51.3 fL (36.4-46.3); Red Blood Count 3.13 M/uL (4.20-5.40); White Blood Count 12.48 K/ul (4.8-10.8)
[2024-09-20] MEDS: LEVOTHYROXINE SODIUM 175 MCG TABLET PO SCH (06:53)
--- NOTE | 2024-09-20 07:36 | Obstetrical Progress Note ---
Date of Service September 20, 2024 Assessment & Plan (1) delivery delivered: Plan Both mom and baby doing well. Continue care as per protocol. Encouraged nursing with mother's milk. Encouraged ambulation. Encouraged deep breathing. Observe today and hopefully home tomorrow. Admission and Anticipated Discharge Date Admission Date: September 19, 2024 Supervising Physician Co-Signing Physician Notes Resident Physician Supervision Note: I interviewed and examined the patient. Discussed with Dr. Montgomery and agree with findings and plan as documented in the note. Any exceptions or clarifications are listed here: Patient doing well today ppd/pod 1. Plan routine care. Incision c/d/i , no discharge noted on the dressing, bandage removed. Encourage ambulation, adat. Documented By: Jennifer Rod MD, FACOG Subjective 49 years at 37+2 week POG. #1 POD following delivery No active complains Both mom and baby doing well. Mom Lying comfortable on bed. Pain: Mild, intermittent, manageable on painkillers. Lochia: Moderate Diet: Regular OB diet Gas: Aware of passing, no abdominal distension Peeing: Passed Urine after greer's removal Ambulation: to Bathroomwithout any complication Answered her queries. Review of Systems Review of Systems: As per HPI Physical Exam Physical Exam: General: Alert and oriented. No acute distress. CVS: S1 S2+ No murmurs, regular rhythm. Respiratory: CTA bilaterally. No rhonchi, wheezes, or crackles. No increased work of breathing. Abdomen: Bowel sound +. Soft, nontender Uterus: Fundus firm and palpable few cm below the umbilicus. Incision site looks healthy: Dry, No swelling, Erythema Lower extremities: No LE edema. No deep calf pain. Results & Data Vital Signs (Past 12 Hours) Vital Signs Temp Pulse Resp BP Pulse Ox O2 Del Method 09/20/24 04:30 36.9 C 78 18 134/77 96 Room Air 09/20/24 04:00 16 98 09/20/24 03:03 16 98 09/20/24 02:01 18 97 09/20/24 00:58 18 97 09/20/24 00:30 36.7 C 76 18 130/82 99 Room Air 09/19/24 23:58 18 97 09/19/24 22:59 18 98 03/17/25 21:57 20 98 09/19/24 21:01 18 98 09/19/24 20:05 Room Air 09/19/24 20:05 36.8 C 83 18 135/80 97 Room Air 09/19/24 20:00 18 97
[2024-09-20] MEDS: oxyCODONE HCL IR 5 MG TAB (IMMEDIATE RELEASE) PO PRN (07:50)
[2024-09-20] MEDS: PRENATAL VITAMIN 1 TAB PO SCH (07:50)
[2024-09-20] MEDS: FERROUS SULFATE 325 MG TAB PO SCH (07:51)
[2024-09-20] MEDS ORDERED: KETOROLAC 30 MG/ML VIAL IV PRN (16:30)
[2024-09-20] MEDS: IBUPROFEN 600 MG TAB PO SCH (16:51)
[2024-09-20] MEDS: bisacodyL 5 MG TABEC PO SCH (20:29)
[2024-09-21 06:56] LABS: Hematocrit (blood only) 27.1 % (37.0-47.0); Hemoglobin 8.9 g/dl (12.0-16.0)
--- NOTE | 2024-09-21 08:01 | Obstetrical Progress Note ---
Date of Service September 21, 2024 Assessment & Plan (1) delivery delivered: Plan She reported she was a bit stressed and overwhelmed yesterday night as she was not able to stop baby from crying. Will monitor today Continue care as per protocol. Encouraged nursing with mother's milk. Encouraged ambulation. Encouraged deep breathing. She doesn't feel ready to go home today. Has stuffs to manage. if everything well, plan to discharge tomorrow. Admission and Anticipated Discharge Date Admission Date: September 19, 2024 Supervising Physician Co-Signing Physician Notes Resident Physician Supervision Note: I was present with Dr. Montgomery during the history and exam. I discussed the case with the resident and agree with the findings and plan as documented in the note. Any exceptions or clarifications are listed here: POD2 doing well. Will continue routine postop care until tomorrow. Incision CDI. Documented By: Mia Oconnell, DO Subjective 49 years at 37+2 week POG. #2 POD following delivery Mom reported that she was stressed and overwhelmed at night as baby was crying and she wasn't able to stop baby from crying. Baby doing well this morning. Mom lying comfortably on bed. Pain: Mild, intermittent, manageable on painkillers. Lochia: Moderate Diet: Regular OB diet Gas: Aware of passing, no abdominal distension Peeing: Passed Urine after greer's removal Ambulation: to Bathroom without any complication Answered her queries. Review of Systems Review of Systems: As per HPI Physical Exam Physical Exam: General: Alert and oriented. No acute distress. CVS: S1 S2+ No murmurs, regular rhythm. Respiratory: CTA bilaterally. No rhonchi, wheezes, or crackles. No increased work of breathing. Abdomen: Bowel sound +. Soft, nontender Uterus: Fundus firm and palpable few cm below the umbilicus. Incision site looks healthy: Dry, No swelling, Erythema Lower extremities: No LE edema. No deep calf pain. Results & Data Vital Signs (Past 12 Hours) Vital Signs Temp Pulse Resp BP Pulse Ox O2 Del Method 09/21/24 00:12 36.9 C 80 18 118/57 L 97 Room Air 09/20/24 20:25 37.2 C 86 18 126/75 96 Room Air
[2024-09-21] MEDS ORDERED: bisacodyL 10 MG SUPP PR PRN (10:38)
[2024-09-21] MEDS: IBUPROFEN 600 MG TAB PO ONE (16:44)
[2024-09-21] MEDS: IBUPROFEN 600 MG TAB PO PRN (16:44)
[2024-09-21] MEDS: ACETAMINOPHEN 325 MG TAB PO PRN (22:34)
--- NOTE | 2024-09-22 07:37 | Obstetrical Progress Note ---
Date of Service September 22, 2024 Assessment & Plan (1) delivery delivered: Plan She was bit stressed yesterday as baby lost more weight yesterday. Continue care as per protocol. Encouraged nursing with mother's milk. Encouraged ambulation. Encouraged deep breathing. She doesn't feel ready to go home today due weight issues of baby. Will see today . Admission and Anticipated Discharge Date Admission Date: September 19, 2024 Supervising Physician Co-Signing Physician Notes Patient seen independent of the resident and agree with the above findings and plan. Reports feeling less anxious today as baby is taking in formula feeds well and has gained weight. Has noted some lower extremity edema which appears mild. No calf tenderness noted on exam and patient denying any calf pain with ambulating. Reviewed precautions related to DVTs. Opting to stay till day 4 Subjective 49 years at 37+2 week POG. #3 POD following delivery Mom reported she is doing better than yesterday Baby doing well this morning. Mom lying comfortably on bed. Pain: Mild, intermittent, manageable on painkillers. Lochia: Moderate Diet: Regular OB diet Gas: Aware of passing, no abdominal distension Peeing: Passed Urine after greer's removal Ambulation: to Bathroom and hallway without any complication Answered her queries. Review of Systems Review of Systems: As per HPI Physical Exam Physical Exam: General: Alert and oriented. No acute distress. CVS: S1 S2+ No murmurs, regular rhythm. Respiratory: CTA bilaterally. No rhonchi, wheezes, or crackles. No increased work of breathing. Abdomen: Bowel sound +. Soft, nontender Uterus: Fundus firm and palpable few cm below the umbilicus. Incision site looks healthy: Dry, No swelling, Erythema Lower extremities: No LE edema. No deep calf pain. Results & Data Vital Signs (Past 12 Hours) Vital Signs Temp Pulse Resp BP Pulse Ox O2 Del Method 09/21/24 23:15 36.8 C 79 18 130/71 98 Room Air 09/21/24 19:45 36.9 C 86 18 145/78 H 97 Room Air
[2024-09-22] MEDS: MAGNESIUM HYDROXIDE SUSP 30 ML UDC PO PRN (09:50)
[2024-09-22] MEDS: NYSTATIN POWDER 15GM BTL EXT SCH (11:04)
[2024-09-22] MEDS: SENNA 8.6 MG TAB PO PRN (19:35)
--- NOTE | 2024-09-23 07:27 | Obstetrical Progress Note ---
Date of Service September 23, 2024 Assessment & Plan (1) delivery delivered: Plan She is doing fine today. Was bit stressed yesterday due to weight loss of baby. Feels ready to go home today . Discharge today Follow up with Dr Medellin coming Thursday. Admission and Anticipated Discharge Date Admission Date: September 19, 2024 Supervising Physician Co-Signing Physician Notes Resident Physician Supervision Note: I interviewed and examined the patient. Discussed with Dr. Montgomery and agree with findings and plan as documented in the note. Any exceptions or clarifications are listed here: POD4 s/p elective pCS. Feeling better today and comfortable w/ going home. Exam benign and wnl. Comfortable w/ dc today. PDMP reviewed Documented By: Sandra Granado MD Subjective 49 years at 37+2 week POG. #4 POD following delivery Mom reported she is doing better than yesterday Baby doing well this morning. Mom lying comfortably on bed. Pain: Mild, intermittent, manageable on painkillers. Lochia: Moderate Diet: Regular OB diet Gas: Aware of passing, no abdominal distension Bowel Movement: Not had BM yet Peeing: Normal Ambulation: to Bathroom and hallway without any complication Answered her queries. Review of Systems Review of Systems: As per HPI Physical Exam Physical Exam: General: Alert and oriented. No acute distress. CVS: S1 S2+ No murmurs, regular rhythm. Respiratory: CTA bilaterally. No rhonchi, wheezes, or crackles. No increased work of breathing. Abdomen: Bowel sound +. Soft, nontender Uterus: Fundus firm and palpable few cm below the umbilicus. Incision site looks healthy: Dry, No swelling, Erythema Lower extremities: Mild bilateral leg edema. No deep calf pain. Results & Data Vital Signs (Past 12 Hours) Vital Signs Temp Pulse Resp BP Pulse Ox O2 Del Method 09/23/24 00:50 36.7 C 74 18 145/79 H 95 Room Air
[2024-09-23 07:51] VITALS: BP 145/78; RESP 24; TEMP 98.4; O2SAT 98
[2024-09-23 07:58] VITALS: PULSE 80
--- NOTE | 2024-09-26 13:13 | Discharge Summary ---
Date of Service September 26, 2024 Admission HPI Per Admitting Provider Patient is a 49yowf who presents today at 37+ weeks for primary elective c/s in setting of GHTN. Patient electing c/s because os history of hip replacement secondary to avascular necrosis. Multiple issues with this as noted below. Growth us have been reassuring and appropriate. testing reassuring. Developed GHTN around 25 weeks and labs and blood pressures have been stable since. Sugars controlled on insulin. and Delivery Plans Primary elective due to maternal hip replacement and avascular necrosis Schedule at 28wk visit. C/S SCHEDULED FOR 09/19/[address] ROJAS AND DR. KHAN ASSIST IVF/ICSI--THIS IS PRIVATE FOR SPOUSE AND PATIENT ONLY TO KNOW *Donor egg used*--33yo * [facility] [place] 06/14/24: WNL - JBS *Growth US Q4wks @28wks *Weekly NSTs @36wks *Weekly JASWINDER's @36wks(ICSI done) AMA>40@del *Anatomy Scan @ 20wks * Echo 22-24wks - 06/14 *Growth scan @32wks *Weekly NST's @36 wks *Twice weekly NST @38wks *Weekly JASWINDER's @38wks *Deliver by 40 wks Gest HTN @ 25wk *Weekly BP chk's with Doc *Weekly CBC, LFTs *Growth US Q4wks *If IUGR: JASWINDER w/UAD's weekly *Deliver 37-38wks *(If Gestational HTN<28wks bring to OB) *Twice weekly NST's @Dx Obesity (BMI between 35-39 @ beginning of )--38.3 *Growth US @ 32 wks *Weekly NSTs @ 36wks Hypothyroid *Check TFTs Q4wks - managed by Sergio MOE w/16wk glucola *Begin monthly Growth US's @24wks UDS on admission Discharge Data Consultations 09/19/24 08:28 Consult Anesthesiology Stat Procedures Performed Operation Date: 09/19/24 08:45 Actual Procedures p Section - Jennifer Rojas MD, FACOG Hospital Course (1) delivery delivered: (2) Gestational hypertension: (3) Insulin controlled gestational diabetes mellitus (GDM) during : (4) Elderly multigravida: (5) resulting from in-vitro fertilization: Plan Patient underwent a primary low transverse c/s without complication, QBL 754cc. Postoperative course uncomplicated. Tolerated a regular diet, ambulated, voided after removal of her Lee catheter, tolerated pain with oral pain meds. Discharged home on POD 4. d/c h/h 8.9/27.1. F/u in one week in the office for an incision check and in 6 weeks for pp visit. Instructions given. Coding Level of Care Code None Diagnoses delivery delivered O82 Gestational hypertension O13.9 Insulin controlled gestational diabetes mellitus (GDM) during O24.414 Elderly multigravida O09.529 resulting from in-vitro fertilization O09.819
== END 2024-09-23 13:15 | disposition home or self-care (01) | DRG 787 ==
LOC: 4S1 06:48 → EDSTATUS 08:45 → 4E2 08:45 → 4S1 09:14 → 4E2 13:21